=== PATIENT | female | born 1980 | race Caucasian/White ===

== ENCOUNTER → 2018-06-02 | Outpatient (CLI) | payer OTHER ==
[~2018-06-02] MED LIST: ACETAMINOPHEN-1 EAC1 PO; ALDACTONE50 MG PO; AUROGUARD OTIC15 ML OT; LEVAQUIN 500 M500 MG PO; METFORMIN HCL500 MG PO; TOPAMAX50 MG PO; VICOPROFEN 2001 EAC1 PO; XANAX 0.5 MG0.5 MG PO
== END ==
LOC: M.ULTRA 08:52
DX: M79.89 Other specified soft tissue disorders (principal); M79.605 Pain in left leg; M79.672 Pain in left foot